=== PATIENT | male | born 1960 | race Native Hawaiian/Other Pacific Islander ===

== ENCOUNTER 2017-10-29 11:22 | Outpatient (CLI) | payer OTHER ==
[~2017-10-29 11:22] MED LIST: AMBIEN5 MG PO; GLIM4TAB PO; LISI10TA11 PO; METF500T PO
== END 2017-10-29 22:19 | disposition home or self-care (01) ==
LOC: RESP 11:22
DX: E78.00 Pure hypercholesterolemia, unspecified (principal)
CPT/HCPCS: 93005

== ENCOUNTER 2018-09-06 13:14 | Outpatient (CLI) | payer OTHER | END 2018-09-06 13:28 | disposition short-term general hospital (02) | LOC: AMB 13:14 | DX: R41.0 Disorientation, unspecified (principal); R53.1 Weakness | CPT/HCPCS: A0425; A0427 ==

== ENCOUNTER 2018-10-06 21:48 | Outpatient (CLI) | payer OTHER ==
[2018-10-06] MEDS ORDERED: WARF5TAB6 PO (22:24)
[2018-10-06] MEDS ORDERED: PERCOCET1 TA3 PO (22:26)
[2018-10-06] MEDS ORDERED: ACIDOPHILUS1 CAP PO (22:26)
[2018-10-06] MEDS ORDERED: METFORMIN HYDR500 M1 PO (22:27)
[2018-10-06] MEDS ORDERED: IBU800 MG PO (22:27)
[2018-10-06] MEDS ORDERED: FUROSEMIDE20 MG PO (22:28)
[2018-10-06] MEDS ORDERED: OMEPRAZOLE DR20 MG PO (22:28)
[2018-10-06] MEDS ORDERED: AMBIEN5 MG PO (22:32)
[2018-10-06] MEDS ORDERED: AMLODIPINE BESYLATE PO (22:33)
[2018-10-06] MEDS ORDERED: METO25TA4 PO (22:33)
[2018-10-06] MEDS ORDERED: CLOP75TA2 PO (22:33)
[2018-10-06] MEDS ORDERED: LIPITOR10 MG PO (22:34)
[2018-10-06] MEDS ORDERED: ENOX80IN SC (22:36)
== END 2018-10-06 21:58 | disposition short-term general hospital (02) ==
LOC: AMB 21:48
DX: R41.82 Altered mental status, unspecified (principal)
CPT/HCPCS: A0425; A0427

== ENCOUNTER 2018-10-06 22:05 | Emergency (ER) | payer OTHER ==
[~2018-10-06] VITALS: Ht 177.8 cm; Wt 72.6 kg
[2018-10-06] MEDS ORDERED: WARF5TAB6 PO (22:24)
[2018-10-06] MEDS ORDERED: PERCOCET1 TA3 PO (22:26)
[2018-10-06] MEDS ORDERED: ACIDOPHILUS1 CAP PO (22:26)
[2018-10-06] MEDS ORDERED: METFORMIN HYDR500 M1 PO (22:27)
[2018-10-06] MEDS ORDERED: IBU800 MG PO (22:27)
[2018-10-06] MEDS ORDERED: FUROSEMIDE20 MG PO (22:28)
[2018-10-06] MEDS ORDERED: OMEPRAZOLE DR20 MG PO (22:28)
[2018-10-06] MEDS ORDERED: AMBIEN5 MG PO (22:32)
[2018-10-06] MEDS ORDERED: METO25TA4 PO (22:33)
[2018-10-06] MEDS ORDERED: CLOP75TA2 PO (22:33)
[2018-10-06] MEDS ORDERED: AMLODIPINE BESYLATE PO (22:33)
[2018-10-06] MEDS ORDERED: LIPITOR10 MG PO (22:34)
[2018-10-06] MEDS ORDERED: ENOX80IN SC (22:36)
[2018-10-06 23:18] LABS: PLATELET COUNT 552 K/uL (142-355)
[2018-10-06 23:53] LABS: POTASSIUM 4.6 mmol/L (3.6-5.2)
[2018-10-07 01:52] VITALS: BP 110/62; TEMP 97.4
== END 2018-10-07 01:52 | disposition home or self-care (01) ==
LOC: ED 22:05
PROVIDERS: Internal Medicine
DX: A41.9 Sepsis, unspecified organism (principal); J18.9 Pneumonia, unspecified organism; L89.153 Pressure ulcer of sacral region, stage 3; E87.1 Hypo-osmolality and hyponatremia; R79.89 Other specified abnormal findings of blood chemistry; R00.0 Tachycardia, unspecified
CPT/HCPCS: 36415; 80053; 80307; 80320; 80329; 81000; 82140; 82550; 83605; 84484; 85027; 87040; 87070; 87205; 93005; 96360; 96365; 96366; 96375; 99285; J1956; J2310; J2543

== ENCOUNTER 2018-10-16 01:01 | Outpatient (CLI) | payer OTHER ==
[~2018-10-16 01:01] MED LIST changes: +ACIDOPHILUS1 CAP PO; +AMLODIPINE BESYLATE PO; +CLOP75TA2 PO; +ENOX80IN SC; +FUROSEMIDE20 MG PO; +IBU800 MG PO; +LIPITOR10 MG PO; +METFORMIN HYDR500 M1 PO; +METO25TA4 PO; +OMEPRAZOLE DR20 MG PO; +PERCOCET1 TA3 PO; +WARF5TAB6 PO
== END 2018-10-16 01:20 | disposition short-term general hospital (02) ==
LOC: AMB 01:01
DX: R06.02 Shortness of breath (principal); R06.2 Wheezing
CPT/HCPCS: A0425; A0427

== ENCOUNTER 2019-08-07 10:07 | Observation (INO) | payer OTHER ==
[2019-08-07] VITALS (15 sets, daily range): BP systolic 110–205; BP diastolic 52–104; TEMP 98–99.6; Ht 180.3 cm; Wt 61.3 kg
[~2019-08-07] VITALS: Ht 180.3 cm; Wt 61.3 kg
[2019-08-07 10:49] LABS: PLATELET COUNT 266 K/uL (142-355)
[2019-08-07] MEDS ORDERED: METFTAB PO (10:49)
[2019-08-07] MEDS ORDERED: AMBIEN5 MG PO (10:51)
[2019-08-07] MEDS ORDERED: LIPITOR40 MG PO (10:52)
[2019-08-07] MEDS ORDERED: FURO40TA93 PO (10:52)
[2019-08-07 10:57] LABS: POTASSIUM 5.2 mmol/L (3.6-5.2)
[2019-08-07] MEDS ORDERED: IBU800 MG PO (16:27)
[2019-08-07] MEDS ORDERED: TEMA30CA18 PO (16:31)
[2019-08-07] MEDS ORDERED: PERCOCET1 TA3 PO (16:33)
[2019-08-07] MEDS ORDERED: TOBRAMYCIN TOP (16:37)
[2019-08-08 04:05] VITALS: BP 190/140; TEMP 98.8
[2019-08-08 08:00] VITALS: BP 155/97; TEMP 97.6
== END 2019-08-08 11:48 | disposition home or self-care (01) ==
LOC: ED 10:24 → MED/SURG 14:20
DX: R41.82 Altered mental status, unspecified (principal); E11.9 Type 2 diabetes mellitus without complications; I10 Essential (primary) hypertension; N17.8 Other acute kidney failure; K21.9 Gastro-esophageal reflux disease without esophagitis; Z89.612 Acquired absence of left leg above knee
CPT/HCPCS: 36600; 80053; 80307; 81000; 81002; 82805; 82962; 83036; 85027; 96360; 96361; 96375; 96376; 99220; 99284; G0378; J0360; J1650; J1815; J2060; J3490

== ENCOUNTER 2020-06-14 09:01 | Outpatient (CLI) | payer OTHER ==
[~2020-06-14 09:01] MED LIST changes: +FURO40TA93 PO; +LIPITOR40 MG PO; +METFTAB PO; +TEMA30CA18 PO; +TOBRAMYCIN TOP
== END 2020-06-14 21:56 | disposition home or self-care (01) ==
LOC: INF 09:01
PROVIDERS: ATTEND Internal Medicine
DX: Z23 Encounter for immunization (principal)
CPT/HCPCS: 96372

== ENCOUNTER 2020-07-06 09:00 | Outpatient (CLI) | payer OTHER | END 2020-07-06 21:01 | disposition home or self-care (01) | LOC: INF 09:00 | PROVIDERS: ATTEND Internal Medicine | DX: Z23 Encounter for immunization (principal) | CPT/HCPCS: 96372 ==

== ENCOUNTER 2021-10-31 11:00 | Inpatient (IN) | payer OTHER ==
[~2021-10-31] VITALS: Ht 175.3 cm; Wt 65.4 kg
[2021-10-31 14:06] LABS: POTASSIUM 6.1 mmol/L (3.6-5.2)
[2021-10-31 18:20] VITALS: BP 143/68; TEMP 98; Ht 175.3 cm; Wt 65.4 kg
[2021-10-31 20:00] VITALS: BP 120/81; TEMP 98.1
[2021-10-31 20:54] LABS: PLATELET COUNT 204 K/uL (142-355)
[2021-11-01] VITALS: BP 134/64; TEMP 98.6
[2021-11-01 04:00] VITALS: BP 137/65; TEMP 98.3
[2021-11-01 05:19] LABS: PLATELET COUNT 204 K/uL (142-355)
[2021-11-01] MEDS ORDERED: AMBIEN5 MG PO (05:19)
[2021-11-01] MEDS ORDERED: ALLO100T22 PO (05:19)
[2021-11-01] MEDS ORDERED: 904272561 PO (05:20)
[2021-11-01] MEDS ORDERED: MITIGARE0.6 MG PO (05:20)
[2021-11-01] MEDS ORDERED: MUPIROCIN21 EX (05:21)
[2021-11-01] MEDS ORDERED: METFORMIN500 MG/5 M PO (05:21)
[2021-11-01] MEDS ORDERED: ENDOCET1 TA3 PO (05:22)
[2021-11-01 05:48] LABS: POTASSIUM 6.2 mmol/L (3.6-5.2)
[2021-11-01 08:00] VITALS: BP 116/87; TEMP 97.9
[2021-11-01 12:00] VITALS: BP 167/91; TEMP 98.2
[2021-11-01 12:08] LABS: POTASSIUM 5.5 mmol/L (3.6-5.2)
[2021-11-01 16:00] VITALS: BP 133/61; TEMP 98.2
[2021-11-01 20:00] VITALS: BP 171/77; TEMP 98.3
[2021-11-02] VITALS: BP 151/71; TEMP 98.4
[2021-11-02 00:57] LABS: PLATELET COUNT 198 K/uL (142-355)
[2021-11-02 04:00] VITALS: BP 156/73; TEMP 98.6
[2021-11-02 05:29] LABS: PLATELET COUNT 220 K/uL (142-355)
[2021-11-02 05:48] LABS: POTASSIUM 5.4 mmol/L (3.6-5.2)
[2021-11-02 08:00] VITALS: BP 149/63; TEMP 97.4
[2021-11-02 12:00] VITALS: BP 157/69; TEMP 97.9
[2021-11-02 16:00] VITALS: BP 148/72; TEMP 97.4
[2021-11-02 20:00] VITALS: BP 158/89; TEMP 98
[2021-11-03] VITALS: BP 125/78; TEMP 98.3
[2021-11-03 04:00] VITALS: BP 175/71; TEMP 98.5
[2021-11-03 05:27] LABS: PLATELET COUNT 226 K/uL (142-355)
[2021-11-03 08:00] VITALS: BP 186/97; TEMP 98.2
[2021-11-03 12:00] VITALS: BP 189/76; TEMP 98
[2021-11-03] MEDS ORDERED: CLINDAMYCIN HY300 MG PO (12:44)
[2021-11-03] MEDS ORDERED: PERCOCET1 TA3 PO (12:49)
== END 2021-11-03 15:00 | disposition home or self-care (01) | DRG 603 ==
LOC: US 11:00 → MED/SURG 17:36
PROVIDERS: Nurse Practitioner Family; ADMIT Internal Medicine; ATTEND Internal Medicine
DX: L03.031 Cellulitis of right toe (principal); E87.1 Hypo-osmolality and hyponatremia; N17.8 Other acute kidney failure; E87.5 Hyperkalemia; I10 Essential (primary) hypertension; E11.65 Type 2 diabetes mellitus with hyperglycemia; Z89.612 Acquired absence of left leg above knee
CPT/HCPCS: 36415; 80048; 80053; 82088; 82533; 82570; 83605; 84244; 84300; 85027; 87635; 93005; J0360; J1170; J1650; J1815; J2270; J3490; J7060; U0003